=== PATIENT | male | born 1955 | race Caucasian/White ===

== ENCOUNTER → 2017-01-30 | Outpatient (CLI) | payer BC | LOC: BMCIMAGING 12:06 | PROVIDERS: ATTEND Internal Medicine | DX: J40 Bronchitis, not specified as acute or chronic (principal) ==

== ENCOUNTER → 2017-01-31 | Outpatient (CLI) | payer BC | LOC: BMCIMAGING 13:05 | PROVIDERS: ATTEND Internal Medicine | DX: K40.90 Unilateral inguinal hernia, without obstruction or gangrene, not specified as recurrent (principal) ==

== ENCOUNTER → 2017-03-31 | Outpatient (CLI) | payer BC | LOC: FIMAGING 10:35 | PROVIDERS: ATTEND Orthopaedic Surgery | DX: Z01.818 Encounter for other preprocedural examination (principal); M17.11 Unilateral primary osteoarthritis, right knee ==

== ENCOUNTER 2017-04-12 09:00 | Inpatient (IN) | payer BC ==
[~2017-04-12 09:00] MED LIST: ROPIVACAINE 0.2% 80 MG, EPINEPHrine 0.2 MG, KETOROLAC TROMETHAMINE 30 MG in BAG 0 ML IU ONE; TRANEXAMIC ACID 3,000 MG in NS 50 ML IRR ONE
[2017-04-12] MEDS ORDERED: ceFAZolin 2 GM/DEXTROSE 100 ML IV ONE (09:30)
[2017-04-12] MEDS ORDERED: FAMOTIDINE 20 MG TAB PO ONE (09:30)
[2017-04-12] MEDS ORDERED: ACETAMINOPHEN 325 MG TAB PO ONE (09:30)
[2017-04-12] MEDS ORDERED: DEXAMETHASONE 4 MG/ML VIAL IVP ONE (09:30)
--- NOTE | 2017-04-12 09:30 | PDHPUP ---
History & Physical Update H&P update statement: This history and physical update is based on an assessment of the patient which was completed after admission or registration (within 24 hours), but prior to the surgery/procedure. H&P update: H&P reviewed & patient examined, no change in patient's condition since H&P completed
[2017-04-12] MEDS ORDERED: LR 1,000 ML IV ONE (09:32)
[2017-04-12] MEDS ORDERED: LIDOCAINE 1% 2 ML INJ ID PRN (09:32)
[2017-04-12] MEDS ORDERED: TRANEXAMIC ACID 3,000 MG/50 ML BAG IRR ONE (10:11)
[2017-04-12] MEDS ORDERED: VANCOMYCIN 1 GM VIAL ONE (10:12)
--- NOTE | 2017-04-12 11:19 | PDANEPAE ---
ANE History of Present Illness R TKA ANE Past Medical History - Cardiovascular History Hx Hypertension: No Hx Arrhythmias: No Hx Chest Pain: No Hx Coronary Artery / Peripheral Vascular Disease: No Hx CHF / Valvular Disease: No Hx Palpitations: No - Pulmonary History Hx COPD: No Hx Asthma/Reactive Airway Disease: No Hx Recent Upper Respiratory Infection: No Hx Oxygen in Use at Home: No Hx Sleep Apnea: No Sleep Apnea Screening Result - Last Documented: Negative - Neurologic History Hx Cerebrovascular Accident: No Hx Seizures: No Hx Dementia: No - Endocrine History Hx Diabetes: No Hypothyroid: No Hyperthyroid: No - Renal History Hx Renal Disorders: No - Liver History Hx Hepatic Disorders: No - Neurological & Psychiatric Hx Hx Neurological and Psychiatric Disorders: No - Cancer History Hx Cancer: Yes Cancer History Comment: BASAL CELL REMOVED FROM NOSE - Congenital Disorder History Hx Congenital Disorders: No - GI History GERD: no Hx Gastrointestinal Disorders: No - Other Health History Other Health History: WEARS READING GLASSES - Chronic Pain History Chronic Pain: Yes (RIGHT KNEE) - Surgical History Prior Surgeries: 06/2012 RIGHT ANKLE ARTHROPLASTY WITH SHELLEY. 07/07/13 I & D RIGHT ANKLE WITH SHELLEY. ANOTHER RIGHT ANKLE DEBRIDEMENT. RIGHT KNEE SCOPE 1999 WITH LUIS LOPES Review of Systems Review of Systems: - Exercise capacity METS (RN): 4 METS ANE Patient History - Allergies Allergies/Adverse Reactions: codeine Allergy (Verified 03/24/17 10:29) Nausea/vomiting - Home Medications Home Medications: Herbals/Supplements -Info Only 1 each PO AD 07/07/13 [Last Taken 03/29/17] Ibuprofen [Motrin 200 mg (OTC)] 600 mg PO TID 07/07/13 [Last Taken 04/05/17] Doxycycline Hyclate [Vibramycin 100 MG (*)] 100 mg PO DAILY 03/21/17 [Last Taken 04/12/17 07:30] Timolol [Betimol] 1 drop EACHEYE DAILY 03/21/17 [Last Taken 04/12/17 07:30] - Anes Hx Anes Hx: no prior problems - Smoking Hx Smoking Status: Never smoked Marijuana use: No - Alcohol Use Alcohol Use: None - Family Anes Hx Family Hx Anesthesia Complications: NONE ANE Labs/Vital Signs - Vital Signs Blood Pressure: 123/82 Heart Rate: 56 Respiratory Rate: 16 O2 Sat (%): 93 Height: 182.88 cm Weight: 87.09 kg ANE Physical Exam - Airway Neck exam: FROM Mallampati Score: Class 1 - Pulmonary Pulmonary: clear to auscultation - Cardiovascular Cardiovascular: regular rate and rhythym - ASA Status ASA Status: II ANE Anesthesia Plan Anesthesia Plan: spinal Regional Anesthesia: adductor canal FNB
[2017-04-12] MEDS ORDERED: MIDAZOLAM 2 MG/2 ML VIAL IVP ONE ×2 (11:20→11:30)
[2017-04-12] MEDS ORDERED: PROPOFOL 200 MG/20 ML VIAL ONE ×3 (11:23→12:50)
[2017-04-12] MEDS ORDERED: fentaNYL 100 MCG/2 ML INJ ONE (11:23)
[2017-04-12] MEDS ORDERED: ONDANSETRON 4 MG/2 ML VIAL IVP PRN (12:07)
[2017-04-12] MEDS ORDERED: TEMAZEPAM 15 MG CAP PO PRN (12:07)
[2017-04-12] MEDS ORDERED: diphenhydrAMINE 25 MG CAP PO PRN (12:07)
[2017-04-12] MEDS ORDERED: PROMETHAZINE HCL 25 MG SUPPR PR PRN (12:07)
[2017-04-12] MEDS ORDERED: METOCLOPRAMIDE 10 MG/2 ML VIAL IVP PRN (12:07)
[2017-04-12] MEDS ORDERED: ONDANSETRON DISINTEGRATING 4 MG TAB PO PRN (12:07)
[2017-04-12] MEDS ORDERED: DIPHENOXYLATE/ATROPINE LOMOTIL 1 TAB PO PRN (12:07)
[2017-04-12] MEDS ORDERED: BISACODYL 10 MG SUPP PR PRN (12:07)
[2017-04-12] MEDS ORDERED: PROMETHAZINE HCL 25 MG/ML INJ IVP PRN (12:07)
[2017-04-12] MEDS ORDERED: POLYETHYLENE GLYCOL 3350 17 GM PKT PO PRN (12:07)
[2017-04-12] MEDS ORDERED: MAGNESIUM HYDROXIDE 30 ML UDCUP PO PRN (12:07)
[2017-04-12] MEDS ORDERED: LACTULOSE 20 GM/30 ML UDCUP PO PRN (12:07)
[2017-04-12] MEDS ORDERED: ONDANSETRON 4 MG/2 ML VIAL ONE (12:14)
[2017-04-12] MEDS ORDERED: ROPIVACAINE HCL 150 MG/30 ML INJ ONE (12:16)
[2017-04-12] MEDS ORDERED: LR 1,000 ML IV SCH (12:30)
--- NOTE | 2017-04-12 13:17 | POSTOPPROG ---
Post Op Note Date of Operation: 04/12/17 Surgeon: Jeane Jacques [employer] Teacher: jeannie jacques Anesthesiologist: dr. anderson Anesthesia: Spinal, Other (Specify) (adductor canal block) Pre-op Diagnosis: right knee OA Post-op Diagnosis: same Indication: right knee pain due to OA that failed conservative measures Procedure: R TKA Findings: severe knee OA Inf/Abcess present in the surg proc area at time of surgery?: No EBL: 50-100
[2017-04-12] MEDS ORDERED: NALOXONE HCL 0.4 MG/ML INJ IVP PRN (13:33)
[2017-04-12] MEDS ORDERED: fentaNYL 100 MCG/2 ML INJ IVP PRN (13:33)
--- NOTE | 2017-04-12 14:36 | POSTANESTH ---
Post Anesthetic Evaluation Cardiovascular Status: Normal, Stable Respiratory Status: Normal, Stable Level of Consciousness/Mental Status: Can Participate in Eval Pain Control: Adequate, Prn Tx Ordered Nausea/Vomiting Control: Adequate, Prn Tx Ordered Complications Possibly Related to Anesthesia: None Noted
[2017-04-12] MEDS: ACETAMINOPHEN 325 MG TAB PO SCH (16:54)
[2017-04-12] MEDS: oxyCODONE IR 5 MG TAB PO PRN ×3 (16:55→20:23)
[2017-04-12] MEDS: CYCLOBENZAPRINE 10 MG TAB PO PRN (18:32)
[2017-04-12] MEDS: ceFAZolin 2 GM/DEXTROSE 100 ML IV SCH (19:54)
[2017-04-12] MEDS: FAMOTIDINE 20 MG TAB PO SCH (20:18)
[2017-04-12] MEDS: SENNOSIDES/DOCUSATE SODIUM TAB PO SCH (20:18)
[2017-04-12] MEDS: ASPIRIN 325 MG TAB PO SCH (20:18)
[2017-04-13] MEDS: oxyCODONE IR 5 MG TAB PO PRN ×3 (00:01→10:28)
[2017-04-13] MEDS: ACETAMINOPHEN 325 MG TAB PO SCH ×2 (00:01→05:41)
[2017-04-13] MEDS: CYCLOBENZAPRINE 10 MG TAB PO PRN (04:42)
[2017-04-13] MEDS: ceFAZolin 2 GM/DEXTROSE 100 ML IV SCH (04:46)
[2017-04-13 05:37] LABS: HEMATOCRIT 37.9 % (40.0-51.0); HEMOGLOBIN 12.7 g/dL (13.7-17.5)
--- NOTE | 2017-04-13 06:18 | GOP ---
[f rep st] OPERATIVE REPORT DATE OF OPERATION: 04/12/2017 SURGEON: Ronel Juárez MD [employer] MECHANIC: Yasemin Juárez PA-C ANESTHESIA: Spinal. PREOPERATIVE DIAGNOSIS: Right knee osteoarthritis. POSTOPERATIVE DIAGNOSIS: Right knee osteoarthritis. PROCEDURE PERFORMED: Right total knee arthroplasty. FINDINGS/PATHOLOGY: Severe tricompartmental osteoarthritis. ESTIMATED BLOOD LOSS: 30 cc. INDICATIONS: This is a 62-year-old male with severe and progressive pain and deformity of the right knee unresponsive to conservative care. Risks and benefits of the surgical intervention were explained in detail. DESCRIPTION OF PROCEDURE: The patient was brought to the operative room and placed on the table in the supine position. Spinal anesthesia was induced without difficulty. A pneumatic tourniquet was applied about the right proximal thigh, and the leg was prepped and draped in a sterile fashion. The leg eden was applied. After exsanguination by elevation the tourniquet was inflated to 250 mm of mercury. Incision was made anterior medial from the tibial tuberosity to a point 2 cm proximal to the superior pole of the patella. Medial parapatellar arthrotomy was carried out from the superior pole of the patella and posteriorly in line with the fibers of the Type II VMO. The medial collateral ligament was elevated and the infrapatellar fat pad was resected. The patella was everted and the articular surface was excised. A 40 mm patellar button was placed. Attention was turned first to the distal aspect of the right femur. At 3 cm proximal to the medial rise of the femur, 2 percutaneous half pins were placed for fixation of the femoral array. In a similar fashion, 2 pins were placed anteromedial on the tibia for fixation of the tibial array. External land marking and registration of the hip center was performed without difficulty. Internal femoral and tibial registration was carried out without difficulty and the femoral and tibial checkpoints were placed and verified for accuracy. Attention was turned to the femur. The foot print for the size 7 femoral component was cut with the saw using the [employer] robotic system and verified for accuracy against the CT based plan. In a similar fashion, saw was used to cut the footprint for the size 8 tibial component using the [employer] system and verified for accuracy against the CT based plan. The tibial articular surface was excised without difficulty, followed by the intercondylar box cut. The knee was extended and the remnants of the medial and lateral meniscus were excised. The posterior capsule was injected with ropivacaine, epinephrine and Toradol. A size 8 MIS mini-keel tibial tray was positioned. Trial reduction was then carried out. There was excellent range of motion, alignment, and stability using the 9 mm polyethylene. All trials were then removed. The joint was thoroughly irrigated and carefully dried. Two packages of cement and 2 grams of vancomycin were mixed in the vacuum mixer and placed on the fixation surfaces of all surfaces of the components. The components were implanted and all excess cement was thoroughly removed. The permanent 9 mm polyethylene was placed without difficulty. The tourniquet was deflated and all bleeders were coagulated. The wound was thoroughly irrigated and closed using interrupted sutures of 2-0 Vicryl for the joint capsule. The subcu was closed with 3-0 Vicryl and the skin with 4-0 Monocryl. Dermabond and Steri-Strips were applied followed by a compressive dressing. The patient was then moved from the operating room to the recovery room in good condition, having tolerated the procedure well. /[id number]/MODL MTDD
[2017-04-13 08:28] VITALS: BP 112/89; PULSE 56; RESP 14; TEMP 97.6; O2SAT 93
[2017-04-13] MEDS ORDERED: TIMOLOL EACHEYE SCH (09:00)
[2017-04-13] MEDS ORDERED: DOXYCYCLINE HYCLATE 100 MG CAP/TAB PO SCH (09:00)
[2017-04-13] MEDS ORDERED: TIMOLOL 0.5% 15 ML OPHT.BTL EACHEYE SCH (09:00)
[2017-04-13] MEDS: ASPIRIN 325 MG TAB PO SCH (09:22)
[2017-04-13] MEDS: SENNOSIDES/DOCUSATE SODIUM TAB PO SCH (09:22)
[2017-04-13] MEDS: FAMOTIDINE 20 MG TAB PO SCH (09:22)
--- NOTE | 2017-04-13 09:52 | SOAPPROG ---
MICHELLE Progress Note Assessment/Plan: Assessment: Mat is doing well today POD 1 s/p R TKA 1) pain management: pain is well controlled on oral pain meds 2) VTE ppx: recommend aspirin daily for 3 weeks and continue SCDs and SABI hose 3) Anemia: level expected initially postop, asymptomatic, continue to monitor for symptoms 4) D/c planning: d/c to home today pending release from PT 5) muscle spasms: improved with flexeril. Sent script for flexeril to patient's pharmacy via [employer] [facility] system Plan: 04/13/17 09:50 Subjective: Mat is doing well today, denies SOB, chest pain and N/V. Objective: Vital Signs Temp Pulse Resp BP Pulse Ox 36.4 C 56 L 14 112/89 H 93 04/13/17 08:00 04/13/17 08:00 04/13/17 08:00 04/13/17 08:00 04/13/17 08:00 Laboratory Results 04/13/17 05:23 04/12/17 04/13/17 04/14/17 05:59 05:59 05:59 Intake Total 4565 Output Total 780 Balance 3785 RLE: incision dressing is clean and dry, NVI, +pf/df ICD10 Worksheet Patient Problems: Problems Problem Status Onset Primary localized osteoarthritis of right knee Acute Ankle Infection Acute
--- NOTE | 2017-04-13 11:43 | ASDISCHSUM ---
Discharge Information Plan Status:Home with No Needs Medically Cleared to Leave: Discharge Date:04/13/2017 10:56 AM CM D/C Disposition:Home, Routine, Self-Care ADT D/C Disposition:Home, Routine, Self-Care Projected Discharge Date:04/13/2017 10:56 AM Transportation at D/C: Discharge Delay Reason: Follow-Up Date:04/13/2017 10:56 AM Discharge Slot: Final Diagnosis: Placement Information Patient Contact Information Contact Name:GEETA Relationship: Address:[address] [address] Work Phone: City:[facility] Phone: [facility]/Zip Code:[place] [address] Email: Financial Information Financial Class:HMO and PPO Plans Primary Plan Desc: OUT OF [facility] Primary Plan Number:[id number] Secondary Plan Desc: Secondary Plan Number: Assessment Information Intervention Information
--- NOTE | 2017-04-13 12:09 | GDS ---
[f rep st] DISCHARGE SUMMARY ADMISSION DIAGNOSIS: Right knee osteoarthritis. DISCHARGE DIAGNOSIS: Right knee osteoarthritis. PROCEDURE: Right total knee arthroplasty, robot assisted. VTE PROPHYLAXIS: Aspirin recommended 3 weeks daily. BRIEF DESCRIPTION OF HOSPITAL STAY: Patient was admitted for an elective joint arthroplasty. The pa tient tolerated the procedure well and has passed physical therapy. The patient was given appropriat e antibiotic prophylaxis and venous thromboembolism prophylaxis. The patient's pain was well control led on oral pain medication, patient was holding down food, and had urinated. Decision was made to d ischarge the patient. The patient was given post-operative prescriptions pre-operatively. PLAN: Please follow up as scheduled to Dr. Juárez's office in 3 weeks. /[id number]/MODL
== END 2017-04-13 10:56 | disposition home or self-care (01) | DRG 470 ==
LOC: F3E 09:00 → F3N 12:12
PROVIDERS: ADMIT Orthopaedic Surgery; ATTEND Orthopaedic Surgery
DX: M17.11 Unilateral primary osteoarthritis, right knee (principal)
CPT/HCPCS: 97161-GP; 97165-GO; C1713; J0171; J0690; J1100; J1885; J2250; J2405; J2704; J2795; J3010; J3370

== ENCOUNTER → 2017-05-22 | Outpatient (CLI) | payer BC | LOC: FIMAGING 16:11 | PROVIDERS: ATTEND Physician Assistant | DX: M66.0 Rupture of popliteal cyst (principal) ==